=== PATIENT | male | born 1965 | race Caucasian/White ===

== ENCOUNTER 2023-12-02 10:25 | Emergency (ER) | payer BC ==
[2023-12-02 11:06] LABS: #Monocytes 0.4 10x3/uL (0.0-1.1); #Neutrophils 5.2 10x3/uL (1.5-8.4); %Basophils 0.3 % (0.0-2.0); %Eosinophils 0.3 % (0.0-6.0); %Lymphocytes 24.7 % (18.0-47.0); %Monocytes 5.5 % (0.0-10.0); %Neutrophils 68.9 % (40.0-75.0); Hematocrit 45.4 % (38.8-50.0); Hemoglobin 15.9 g/dL (13.5-17.5); Mean Corpuscular Volume 82.7 fl (81.2-95.1); Platelet Count 208 10x3/uL (150-450); RBC Distribution Width 12.3 % (11.5-14.5); Red Blood Cell (RBC) Count 5.49 10x6/uL (4.32-5.72); White Blood Cell (WBC) Count 7.5 10x3/uL (3.5-10.5)
[2023-12-02] MEDS ORDERED: Ondansetron PF 4 MG/2 ML Vial ONE (11:11)
[2023-12-02] MEDS ORDERED: Ketorolac Tromethamine 30 MG (1 mL) VIAL ONE (11:12)
[2023-12-02 11:26] LABS: ALT (SGPT) 55 U/L (8-55); AST (SGOT) 32 U/L (5-34); Albumin 4.3 g/dL (3.5-5.0); Alkaline Phosphatase 54 U/L (40-110); Anion Gap 12 mmol/L (10-20); BUN (Urea Nitrogen) 13 mg/dL (8.4-25.7); Bilirubin, Total 0.7 mg/dL (0.2-1.2); Calc. Creatinine Clearance 0 mL/min (70-130); Calcium 9.1 mg/dL (7.8-10.44); Carbon Dioxide 27 mmol/L (22-29); Chloride 105 mmol/L (98-107); Estimated GFR 71; Globulin 2.8 g/dL (2.4-3.5); Glucose 132 mg/dL (70-105); Potassium 3.8 mmol/L (3.5-5.1); Protein, Total 7.1 g/dL (6.0-8.3); Sodium 140 mmol/L (136-145)
[2023-12-02 14:46] LABS: Bilirubin Neg (Negative); Blood, Urine 250 (Negative); Glucose, Urine (Dipstick) Normal (Negative); Ketone, Urine Negative (Negative); Leukocyte Negative (Negative); Nitrite Negative (Negative); Protein, Urine (Dipstick) 30 mg/dl (Neg-Trace); Specific Gravity, Urine 1.025 (1.005-1.030); Urobilinogen Normal mg/dL (Less than 2)
[2023-12-02 14:48] LABS: Clarity Hazy (Clear)
[2023-12-02 15:00] LABS: Bacteria/HPF None Seen HPF (None Seen); CAUTI Indications for Culture Acute Hematuria; Mucous/LPF 1+ LPF (<2+); RBC/HPF Greater than 50 HPF (0-3); Squamous Epithelial 0-3 HPF (0-3); WBC/HPF 0-3 HPF (0-3)
[2023-12-02 15:01] LABS: Urine Culture Reflex No No
== END 2023-12-02 12:27 | disposition home or self-care (01) ==
LOC: CSHERS 10:25
DX: N13.2 Hydronephrosis with renal and ureteral calculous obstruction (principal); I10 Essential (primary) hypertension; Z79.899 Other long term (current) drug therapy
CPT/HCPCS: 74176; 80053; 81001; 85025; 96374; 96375; J1885; J2405

== ENCOUNTER 2023-12-03 11:29 | Emergency (ER) | payer BC ==
[2023-12-03] MEDS ORDERED: Ketorolac Tromethamine 30 MG (1 mL) VIAL ONE (12:43)
[2023-12-03] MEDS ORDERED: HYDROcodone/Acetaminophen 5/325 mg Tablet ONE (12:44)
== END 2023-12-03 14:00 | disposition home or self-care (01) ==
LOC: CSHERS 11:29
DX: N23 Unspecified renal colic (principal); N20.1 Calculus of ureter; I10 Essential (primary) hypertension
CPT/HCPCS: 96372; 99283; J1885